=== PATIENT | female | born 1945 | race Caucasian/White ===

== ENCOUNTER → 2017-05-01 | Outpatient (CLI) | payer MEDICARE, BC ==
[~2017-05-01] MED LIST: ACETAMINOPHEN PO; ADVAIR 2501 DISK W/D; ALLEGRA PO; ANORO ELLIPTA1 EACH INH; CETIRIZINE HCL10 MG PO; FISH OIL 1,0001 CAP PO; IBUPROFEN PO; KCL PO; LASIX PO; METOPROLOL SUCC50 MG PO; MULTI-VITAMIN1 TAB PO; NASACORT AQ16.5 GM; PREMARIN; PREMARIN PO; TIKOSYN125 MCG PO; TOPROL XL; TOPROL XL PO; WARFARIN SODIUM4 M1 PO
--- NOTE | ~2017-05-01 | MY29 ---
[facility] A Service of [facility] & [facility] RADIOLOGY TEXT RESULTS PATIENT: NAM BAKER LOCATION: [facility] : 43 UNIT #: [id number] AGE: [address]: Susy Ovalle MD SEX: F ORDER DR: [id number] [facility] [address] [place], [place] [address] [id number] O MR#: [id number] Acc #: [id number] NAME: NMA BAKER. : 1945 SEX: F STUDY DATE/TIME: 05/01/2017 7:52 UNIT: [facility] ROOM: STUDY DESCRIPTION: MY AQUILES SCREENING W/ CAD BILAT Attending Physician: Susy Ovalle M.D. Referring Physician: Susy Ovalle M.D. Ordering Physician: Susy Ovalle M.D. Primary Care Physician: Susy Ovalle M.D. MEDICAL IMAGING REPORT This report is preliminary unless electronic signature is present EXAM Digital screening mammogram, 05/01/2017 HISTORY 71-year-old woman no risk elevation. Bilateral breast reduction 2004. Hormone replacement x25 years. Annual screening. COMPARISON Mammograms date to 05/04/2006 with most recent 10/20/2013. FINDINGS Digital imaging of each breast was completed utilizing screening protocol. Review includes FDA-approved CAD device. Breast parenchyma is fatty replaced. Cluster of small nodules with benign characteristics stable in the outer hemisphere of the right breast. Coarse benign calcifications centrally located left breast stable. I see no suspicious mass characteristics. There are no interval occurring microcalcifications and no architectural deformity. IMPRESSION Stable benign mammogram. Annual screening recommended. Patients over the age of 40 are entered into a reminder system with target due date for the next mammogram. A result letter will also be sent to the patient. BIRADS: 2 Benign Finding Dictated by... Juan Manuel Gilbert M.D. THIS IS AN ELECTRONICALLY VERIFIED REPORT Juan Manuel Gilbert M.D. at 05/01/2017 12:09 PM [facility] A Service of [facility] & [facility] RADIOLOGY TEXT RESULTS PATIENT: NAM BAKER LOCATION: [facility] : 43 UNIT #: [id number] AGE: [address]: Susy Ovalle MD SEX: F ORDER DR: Umair TD: 05/01/2017 10:24 JOB #: [id number] MEDICAL IMAGING REPORT Page 1 of 1 COPY
== END | disposition home or self-care (01) ==
LOC: CWCC 07:23
DX: Z12.31 Encounter for screening mammogram for malignant neoplasm of breast (principal); Z98.890 Other specified postprocedural states
CPT/HCPCS: G0202